=== PATIENT | female | born 1960 | race Two or more races ===

== ENCOUNTER 2023-12-24 05:20 | Inpatient (IN) | payer OTHER ==
[~2023-12-24] VITALS: Ht 165.1 cm; Wt 76.2 kg
[~2023-12-24 05:20] MED LIST: LOSARTAN-HCTZ1 EAC2 PO; VYTORIN 10-201 EACH PO
[2023-12-24] MEDS ORDERED: DEXAMETHASONE SODIUM PHOSPHATE 4 MG/ML VIAL ONE (07:23)
[2023-12-24] MEDS ORDERED: ONDANSETRON HCL 2 MG/ML VIAL IV PRN (09:30)
[2023-12-24] MEDS ORDERED: ENALAPRILAT DIHYDRATE 1.25 MG/ML VIAL IV PRN (09:30)
[2023-12-24] MEDS ORDERED: TRAMADOL HCL 50 MG TABLET PO SCH (12:00)
[2023-12-24] MEDS ORDERED: CYCLOBENZAPRINE HCL 5 MG TABLET PO SCH (17:00)
[2023-12-24] MEDS ORDERED: ACETAMINOPHEN 500 MG GEL..CAP PO SCH (17:00)
[2023-12-24] MEDS ORDERED: Calcium Carbonate 1 TAB TABLET PO SCH (21:00)
[2023-12-25] MEDS ORDERED: LOSARTAN/HYDROCHLOROTHIAZIDE 1 TAB TABLET PO SCH (09:00)
[2023-12-25] MEDS ORDERED: LEVOTHYROXINE SODIUM 125 MCG TABLET PO SCH (09:00)
== END 2023-12-25 14:46 | disposition home or self-care (01) | DRG 627 ==
LOC: CIR.AMB 05:20 → SURH 14:23 → O/R 14:23 → SURH 14:31
PROVIDERS: ADMIT Otolaryngology; ATTEND Otolaryngology
PROC: 0GTH0ZZ Resection of Right Thyroid Gland Lobe, Open Approach (ICD-10-PCS; principal; 2023-12-24 07:00)
DX: C73 Malignant neoplasm of thyroid gland (principal); E04.2 Nontoxic multinodular goiter; Z20.822 Contact with and (suspected) exposure to COVID-19

== ENCOUNTER 2024-01-07 09:28 | Outpatient (CLI) | payer OTHER ==
[2024-01-11 10:04] LABS: hav igm Negative (Negative); hcv Non Reactive (Non Reactive); hep b c Negative (Negative); hep b s ag Negative (Negative)
== END 2024-01-07 17:35 | disposition home or self-care (01) ==
LOC: U 09:28 → LAB 09:28
DX: Z00.00 Encounter for general adult medical examination without abnormal findings (principal)